=== PATIENT | female | born 1960 | race Caucasian/White ===

== ENCOUNTER 2016-12-25 16:58 | Inpatient (IN) | payer OTHER ==
[~2016-12-25] VITALS: Ht 162.6 cm; Wt 131.3 kg
[~2016-12-25 16:58] MED LIST: ADVAIR HFA120 INHALA IH; ALBUTEROL SULF8.5 GM IH; ANAPROX DS550 M1 PO; BENICAR20 MG PO; CLOBETASOL PROP60 GM TP; DUONEB 2.5-0.5 M3 ML AEROSOL; ESSENTIAL WOMA1 EAC1 PO; FIBER THERAPY0.52 GM PO; FLUOCINOLON118.28 M1 TP; GABAPENTIN300 MG PO; HYDROCHLOROTH12.5 M3 PO; HYDROXYCHLOROQ200 MG PO; IMIPRAMINE HCL50 MG PO; IMIPRAMINE PAM150 MG PO; LATANOPROST2.5 ML BOTH EYES; LEVOFLOXACIN500 MG PO; LEVOTHYROXINE75 MCG PO; LO-DOSE ASPIRIN81 M1 PO; MENOPAUSE SUPPO20 MG PO; METFORMIN HCL1000 M1 PO; METFORMIN HCL750 MG PO; ORENCIA125 MG/1 M SC; PHENTERMINE H37.5 MG PO; PREDNISONE10 MG PO; PREDNISONE50 MG PO; PROVENTIL,2.5 MG/3 M IH; ROBITUSSIN AC,T10 ML PO; TOPIRAMATE25 MG PO; TRAVATAN Z5 ML BOTH EYES; VICTOZA 2-0.6 MG/0.1 SC; ZITHROMAX250 MG PO; [UNRECOGNIZED DRUG - OTHER]
[2016-12-25 19:17] LABS: BASOPHIL COUNT 0.1 K/uL (0-0.1); EOSINOPHIL (%) 2.3 % (0-5); EOSINOPHIL COUNT 0.3 K/uL (0-0.3); HEMATOCRIT 41.7 % (36.0-46.0); IMMATURE GRANULOCYTE (%) 0.6 % (0.0-0.7); IMMATURE GRANULOCYTE COUNT 0.1 K/uL; INSTRUMENT ABS NEUTROPHIL CT 7.5 K/uL; LYMPHOCYTE COUNT 2.4 K/uL (1.0-2.8); MCH 28.2 PG (29.0-34.0); MCHC 32.4 G/DL (30.0-36.0); MCV 87.1 FL (83-99); MONOCYTE (%) 8.4 % (3-12); NEUTROPHIL (%) 66.8 % (45-76); NEUTROPHIL COUNT 7.5 K/uL (1.8-6.4); PLATELET COUNT 218 K/uL (156-360); RBC DIS.WIDTH-CV 13.2 % (11.8-14.6); RBC DIS.WIDTH-SD 41.5 % (39-53); RED BLOOD COUNT 4.79 M/uL (3.80-5.20); WHITE BLOOD COUNT 11.3 K/uL (4.1-10.2)
[2016-12-25 19:30] LABS: CHLORIDE 109 mEq/L (99-109); SODIUM 143 mEq/L (136-147)
[2016-12-25 19:32] LABS: GLUCOSE 79 mg/dL (70-99)
[2016-12-25 19:33] LABS: ANION GAP 14 MEQ/L (2-14)
[2016-12-25 19:34] LABS: TOTAL BILIRUBIN 0.6 mg/dL (0.0-1.0)
[2016-12-25 19:36] LABS: ALKALINE PHOSPHATASE 75 IU/L (3-129); GFR ESTIMATE (CALCULATED) 54 mL/min/
[2016-12-25 19:37] LABS: UREA NITROGEN (BUN) 18 mg/dL (9-23)
[2016-12-25 20:52] LABS: BASE EXCESS -2.5 mEq/L (-3 to +3); BICARBONATE 21.7 mEq/L (22-26); CARBOXY HGB 1.6 % (0-5); PCO2 35 mm Hg (35-45); PO2 89 mm Hg (80-100)
[2016-12-25 20:53] LABS: COMMENTS - BLOOD GASES A+C+; DEVICE VENT; FI02 24 %; MODE NIV; SITE RR; TOTAL RESP RATE 22 resp/min
[2016-12-25 20:54] LABS: PEEP 5 CM/H20; PRES. SUPPORT 5 CM/H2O; TIDAL VOLUME 988 ML
[2016-12-25] MEDS ORDERED: CLONAZEPAM0.5 MG PO (21:15)
[2016-12-25] MEDS ORDERED: DIOVAN160 MG PO (21:15)
[2016-12-25] MEDS ORDERED: SPIRIVA RESPIMAT4 GM IH (21:15)
[2016-12-25] MEDS ORDERED: ERGOCALCIF50000 UNIT PO (21:15)
[2016-12-25] MEDS ORDERED: THEOPHYLLINE400 MG PO (21:15)
[2016-12-25 21:49] LABS: BASE EXCESS -6.3 mEq/L (-3 to +3); BICARBONATE 23.2 mEq/L (22-26); CARBOXY HGB 3.3 % (0-5); PO2 76 mm Hg (80-100)
[2016-12-25 21:50] LABS: PCO2 65 mm Hg (35-45); SITE RR; pH 7.16 (7.35-7.45)
[2016-12-25 21:51] LABS: COMMENTS - BLOOD GASES A+C+; DEVICE NC; O2 FLOW 3 L/MIN; TOTAL RESP RATE 17 resp/min
[2016-12-26] VITALS (15 sets, daily range): BP systolic 114–159; BP diastolic 57–92
[2016-12-26 01:53] LABS: METH RESISTANT S AUREUS PCR NEGATIVE (NEGATIVE)
[2016-12-26 01:54] LABS: PROBE CHECK PASS; SPECIMEN PROCESSING CONTROL PASS
[2016-12-26 06:14] LABS: ANION GAP 15 MEQ/L (2-14); CHLORIDE 106 MEQ/L (99-109); POTASSIUM 4.6 MEQ/L (3.7-5.4); SAMPLE HEMOLYSIS CHECK 2; SAMPLE ICTERIC CHECK 0; SAMPLE LIPEMIA CHECK 0; SODIUM 138 MEQ/L (136-147)
[2016-12-26 06:20] LABS: GFR ESTIMATE (CALCULATED) > 59 mL/min/; UREA NITROGEN (BUN) 19 mg/dL (9-23)
[2016-12-26 06:39] LABS: HEMATOCRIT 42.1 % (36.0-46.0); MCH 29.9 PG (29.0-34.0); MCHC 34.4 G/DL (30.0-36.0); MCV 86.8 FL (83-99); NRBC (%) 0.4 /100 WBC (0-0); PLAT.SUFFICIENCY DECREASED; PLATELET CLUMPS PRESENT - PLATELET COUNTS APPEARS DECREASED; RBC DIS.WIDTH-CV 13.4 % (11.8-14.6); RBC DIS.WIDTH-SD 42.4 % (39-53); RED BLOOD COUNT 4.85 M/uL (3.80-5.20); WHITE BLOOD COUNT 10.3 K/uL (4.1-10.2)
[2016-12-26 06:42] LABS: GLUCOSE 247 mg/dL (70-99)
[2016-12-26 08:30] LABS: POTASSIUM 4.2 MEQ/L (3.7-5.4)
[2016-12-26 08:44] LABS: POINT-OF-CARE METER ID UU14174217
[2016-12-26 13:33] LABS: EOSINOPHIL (%) 0 % (0-5); HEMATOCRIT 41.4 % (36.0-46.0); IMMATURE GRANULOCYTE (%) 0.6 % (0.0-0.7); IMMATURE GRANULOCYTE COUNT 0.1 K/uL; INSTRUMENT ABS NEUTROPHIL CT 18.7 K/uL; LYMPHOCYTE COUNT 1.1 K/uL (1.0-2.8); MCH 28.2 PG (29.0-34.0); MCHC 33.1 G/DL (30.0-36.0); MCV 85.4 FL (83-99); MEAN PLAT.VOLUME 11.8 uM^3 (9.5-12.4); MONOCYTE (%) 1.9 % (3-12); MONOCYTE COUNT 0.4 K/uL (0-0.8); NEUTROPHIL (%) 92.2 % (45-76); NEUTROPHIL COUNT 18.7 K/uL (1.8-6.4); PLATELET COUNT 247 K/uL (156-360); RBC DIS.WIDTH-CV 13.3 % (11.8-14.6); RBC DIS.WIDTH-SD 41.5 % (39-53); RED BLOOD COUNT 4.85 M/uL (3.80-5.20); WHITE BLOOD COUNT 20.3 K/uL (4.1-10.2)
[2016-12-26 16:25] LABS: POINT-OF-CARE METER ID UU13113803
[2016-12-26 22:13] LABS: POINT-OF-CARE METER ID UU14208753
[2016-12-27 03:23] VITALS: BP 125/73
[2016-12-27 06:59] LABS: POINT-OF-CARE METER ID UU14188577
[2016-12-27 07:54] VITALS: BP 126/63
[2016-12-27 11:47] LABS: POINT-OF-CARE METER ID UU14117124
[2016-12-27 12:30] VITALS: BP 128/71
[2016-12-27 16:30] VITALS: BP 138/64
[2016-12-27 19:57] VITALS: BP 127/69
[2016-12-27 21:42] LABS: POINT-OF-CARE METER ID UU14208753
[2016-12-27 23:46] VITALS: BP 136/69
[2016-12-28 04:30] VITALS: BP 137/83
[2016-12-28 07:00] LABS: POINT-OF-CARE METER ID UU14117124
[2016-12-28 07:48] VITALS: BP 155/80
[2016-12-28 11:12] LABS: POINT-OF-CARE METER ID UU14208753
[2016-12-28 11:15] VITALS: BP 141/80
[2016-12-28 15:15] VITALS: BP 152/80
[2016-12-28 16:18] LABS: POINT-OF-CARE METER ID UU14117124
[2016-12-28 20:31] VITALS: BP 176/88
[2016-12-28 21:38] LABS: POINT-OF-CARE METER ID UU14117124
[2016-12-28 23:25] VITALS: BP 120/55
[2016-12-29 04:30] VITALS: BP 142/88
[2016-12-29 06:40] LABS: POINT-OF-CARE METER ID UU14117124
[2016-12-29 07:40] VITALS: BP 157/76
[2016-12-29 10:29] VITALS: BP 132/68
[2016-12-29] MEDS ORDERED: PREDNISONE20 MG PO (10:37)
[2016-12-29] MEDS ORDERED: BUTALB-APAP-CA1 EACH PO (10:38)
[2016-12-29 11:20] LABS: POINT-OF-CARE METER ID UU14208753
[2016-12-29 15:37] VITALS: BP 132/68; BP 144/88
== END 2016-12-29 18:57 | disposition home or self-care (01) | DRG 190 ==
LOC: EME 16:58 → EDOF 22:55 → 3EAST 22:55 → ENRESERV 22:58 → 4WEST 12-26 00:32 → ENRESERV 12-26 13:36 → 3EAST 12-26 17:22
PROVIDERS: Emergency Medicine; Hospitalist; Internal Medicine Critical Care Medicine; Specialist
PROC: 5A09357 Assistance with Respiratory Ventilation, Less than 24 Consecutive Hours, Continuous Positive Airway Pressure (ICD-10-PCS; principal; 2016-12-25)
DX: J44.1 Chronic obstructive pulmonary disease with (acute) exacerbation (principal); J96.01 Acute respiratory failure with hypoxia; E87.2 Acidosis; E66.01 Morbid (severe) obesity due to excess calories; E11.9 Type 2 diabetes mellitus without complications; G43.909 Migraine, unspecified, not intractable, without status migrainosus; I10 Essential (primary) hypertension; K59.00 Constipation, unspecified; Z79.899 Other long term (current) drug therapy; Z79.84 Long term (current) use of oral hypoglycemic drugs; Z68.42 Body mass index [BMI] 45.0-49.9, adult; Z87.891 Personal history of nicotine dependence
CPT/HCPCS: 36600; 71010; 80048; 80053; 82803; 82948; 83880; 84999; 85025; 85027; 87641; 93005; 94002; 94640; 94640 76; 94644; 94660; 94760; 99202; 99281; 99285; J1650; J1815; J1885; J2060; J2270; J2405; J2930; J3475; J7512